=== PATIENT | male | born 1990 | race Two or more races ===

== ENCOUNTER 2020-01-05 13:47 | Outpatient (CLI) | payer MEDICAID ==
--- NOTE | 2020-01-05 15:15 | Consultation ---
DATE OF CONSULTATION: 01/05/2020 CHIEF COMPLAINT: Rectal bleeding. HISTORY OF PRESENT ILLNESS: The patient is a 29-year-old male complaining of on and off once a week bleeding. Denies any constipation, complained of rectal pain. Apparently, he had this problem on and off since age 21. No significant weight loss. No alarming sign and symptoms. The patient has been working out lifting weights. PAST MEDICAL HISTORY: 1. Allergic rhinitis. 2. IBS. 3. GERD. PAST SURGICAL HISTORY: None. MEDICATIONS: Please see medication reconciliation list. FAMILY HISTORY: No family history of GI malignancies. SOCIAL HISTORY: The patient denies any tobacco, alcohol, or drug abuse. ALLERGIES: No known drug allergies. REVIEW OF SYSTEMS: Positive for GERD, abdominal pain right upper quadrant, and rectal bleeding. PHYSICAL EXAMINATION: VITAL SIGNS: Temperature 98.1, blood pressure 129/75, pulse 90, respirations 20. Weight 190. Height 5 feet 6 inches. HEENT: Normocephalic and atraumatic. Sclerae anicteric. NECK: Supple. No evidence of obvious lymphadenopathy. CARDIOVASCULAR: Regular rate and rhythm. Plus S1-S2. LUNGS: Clear to auscultation bilaterally. ABDOMEN: Positive bowel sounds. Soft and nontender. No rebound. No guarding. No peritoneal sign. EXTREMITIES: No cyanosis. No clubbing. No edema. ASSESSMENT AND PLAN: The patient is a 29-year-old male with on and off rectal bleeding, most suspicious for hemorrhoids. The patient was given a prescription for Anusol HC. The patient also was instructed to use sitz baths twice a day. Come back if there is persistent bleeding. At that time, we will consider colonoscopy. In terms of right upper quadrant abdominal pain, the patient is concerned about gallstones, we will order an abdominal ultrasound. Angel Gardner M.D. DR: Kristen JOB#: [id number] CC:
== END 2020-01-05 15:47 | disposition home or self-care (01) ==
LOC: PAN 13:47
DX: K62.5 Hemorrhage of anus and rectum (principal); K21.9 Gastro-esophageal reflux disease without esophagitis; K58.9 Irritable bowel syndrome, unspecified; R10.11 Right upper quadrant pain
CPT/HCPCS: G0463

== ENCOUNTER 2020-01-21 13:42 | Outpatient (CLI) | payer MEDICAID ==
[2020-01-21 13:52] VITALS: BP 122/82
--- NOTE | 2020-01-21 14:03 | General Progress Note ---
Subjective ROS Limited/Unobtainable: Yes Allergies: Coded Allergies: No Known Allergies (Unverified , 01/13/20) Objective Last 24 Hour Vital Signs Date Time Temp Pulse Resp B/P (MAP) Pulse Ox O2 Delivery O2 Flow Rate FiO2 01/21/20 13:52 97.5 16 122/82 98 General Appearance: alert EENT: normal ENT inspection Neck: supple Cardiovascular: normal rate Respiratory/Chest: chest wall non-tender Abdomen: normal bowel sounds, non tender, soft Extremities: non-tender Assessment/Plan Assessment/Plan: hemorrhoids recta bleed IBS Anusol HC align RTC prn Angel Gardner MD Jan 21, 2020 14:03
== END 2020-01-21 15:42 | disposition home or self-care (01) ==
LOC: PAN 13:42
DX: K64.9 Unspecified hemorrhoids (principal); K62.5 Hemorrhage of anus and rectum; K58.9 Irritable bowel syndrome, unspecified
CPT/HCPCS: 99212

== ENCOUNTER 2020-05-19 13:26 | Outpatient (CLI) | payer MEDICAID ==
[~2020-05-19] VITALS: Ht 167.6 cm; Wt 87.1 kg
[2020-05-19 13:39] VITALS: BP 145/78
[2020-05-19] MEDS ORDERED: FAMOTIDINE20 MG ORAL (13:42)
[2020-05-19] MEDS ORDERED: FLONASE ALLERG9.9 ML NS (13:42)
== END 2020-05-19 15:26 | disposition home or self-care (01) ==
LOC: PAN 13:26
DX: R10.9 Unspecified abdominal pain (principal)
CPT/HCPCS: 99212